=== PATIENT | female | born 1965 | race Caucasian/White ===

== ENCOUNTER 2018-03-14 15:37 | Observation (INO) | payer SELFPAY ==
[~2018-03-14] VITALS: Ht 154.9 cm; Wt 101.1 kg
[~2018-03-14 15:37] MED LIST: CIPR500T4 PO; GUAI100S6 PO
[2018-03-14 15:51] VITALS: BP 195/122; PULSE 94; RESP 18; TEMP 97.5; O2SAT 96
[2018-03-14 16:10] LABS: AUTOMATED NEUTROPHIL # 5.6 TH/MM3 (1.8-7.7); BASOPHIL # 0.1 TH/MM3 (0-0.2); BASOPHIL % 0.8 % (0.0-2.0); EOSINOPHIL # 0.2 TH/MM3 (0-0.4); EOSINOPHIL % 1.6 % (0.0-4.0); HEMOGLOBIN 15.9 GM/DL (11.6-15.3); LYMPH % 34.4 % (9.0-44.0); LYMPHOCYTE # 3.4 TH/MM3 (1.0-4.8); MEAN CELL VOLUME 84.6 FL (80.0-100.0); MEAN CORPUSCULAR HEMOGLOBIN 28.7 PG (27.0-34.0); MEAN CORPUSCULAR HGB CONC 33.9 % (32.0-36.0); MEAN PLATELET VOLUME 9.4 FL (7.0-11.0); MONO % 5.6 % (0.0-8.0); MONOCYTE # 0.6 TH/MM3 (0-0.9); NEUT % 57.6 % (16.0-70.0); PLATELET COUNT 248 TH/MM3 (150-450); RED BLOOD COUNT 5.55 MIL/MM3 (4.00-5.30); RED CELL DISTRIBUTION WIDTH 13.1 % (11.6-17.2); WHITE BLOOD COUNT 9.9 TH/MM3 (4.0-11.0)
[2018-03-14 16:11] VITALS: RESP 18; O2SAT 100
[2018-03-14 16:20] LABS: CHLORIDE 103 MEQ/L (98-107); SODIUM (NA) 136 MEQ/L (136-145)
[2018-03-14 16:22] LABS: CALCIUM 9.2 MG/DL (8.5-10.1)
[2018-03-14 16:23] LABS: BICARBONATE 26.9 MEQ/L (21.0-32.0); BLOOD UREA NITROGEN 11 MG/DL (7-18); GLUCOSE,RANDOM 200 MG/DL (74-106)
[2018-03-14 16:26] LABS: CREATININE 0.75 MG/DL (0.50-1.00); GLOMERULAR FILTRATION RATE 81 ML/MIN (>89); PROTHROMBIN TIME - PATIENT 10.6 SEC (9.8-11.6)
[2018-03-14 16:31] LABS: TROPONIN I LESS THAN 0.02 NG/ML (0.02-0.05)
[2018-03-14 16:47] VITALS: BP 210/112; PULSE 80; RESP 18; O2SAT 94
--- NOTE | 2018-03-14 16:58 | PD ---
HPI Chief Complaint: Chest Pain Time Seen by Provider: 16:16 Travel History International Travel<30 days: No Contact w/Intl Traveler<30days: No Traveled to known affect area: No History of Present Illness HPI 52-year-old female complains of chest pain headache nausea vomiting. Patient states that she started having substernal chest pressure with radiation to left arm since yesterday. Patient states that she has numbness sensation of left anterior chest wall also. Patient denies any palpitation. Patient denies diaphoresis. Patient started having aching headache diffuse over the head this morning. Patient denies any visual change. Patient states that she had intermittent nausea vomiting with a headache. Patient denies any neck pain. Patient denies abdominal pain. Patient denies any fever chills. Patient denies any focal weakness or numbness of the extremity. Patient has history hypertension. Patient was on medication the past. Patient states that she does not have insurance and has not been on medication recently for high blood pressure. Patient denies history of diabetes or hyperlipidemia. Patient is a non-smoker. Patient has family history of heart disease. On a scale of 1-10 the pain is a 5. Patient states that she had chest pain in 2007. Patient was seen in [place] and had chemical stress test done which was negative. PFSH Past Medical History Anemia: Yes Cancer: No Cardiovascular Problems: Yes Diabetes: No ("SOMETIMES" ) Endocrine: Yes Genitourinary: No Hypertension: Yes Musculoskeletal: No Neurologic: No Psychiatric: No Reproductive: No Respiratory: No Influenza Vaccination: No PNEUMOCCOCAL Vaccine (Year): 2 ?: Not Menopausal: No Past Surgical History Surgical History: No Previous Surgery Other Surgery: No Social History Alcohol Use: No Tobacco Use: No Substance Use: No Allergies-Medications (Allergen,Severity, Reaction): Coded Allergies: aspirin (Unverified Allergy, Severe, Swelling, 03/14/18) nitroglycerin (Unverified Allergy, Severe, SWELLING, 03/14/18) shellfish derived (Unverified Allergy, Severe, Swelling, 03/14/18) Reported Meds & Prescriptions Reported Meds & Active Scripts Active No Active Prescriptions or Reported Medications Review of Systems General / Constitutional: No: Fever Eyes: No: Visual changes HENT: Positive: Headaches Cardiovascular: Positive: Chest Pain or Discomfort Respiratory: No: Shortness of Breath Gastrointestinal: Positive: Nausea, Vomiting, No: Abdominal Pain Genitourinary: No: Dysuria Musculoskeletal: No: Pain Skin: No Rash Neurologic: No: Weakness Psychiatric: No: Depression Endocrine: No: Polydipsia Hematologic/Lymphatic: No: Easy Bruising Physical Exam Narrative GENERAL: Well-nourished, well-developed patient. SKIN: Focused skin assessment warm/dry. HEAD: Normocephalic. EYES: No scleral icterus. No injection or drainage. Pupils 2 mm equal reactive. NECK: Supple, trachea midline. No JVD or lymphadenopathy. CARDIOVASCULAR: Regular rate and rhythm without murmurs, gallops, or rubs. RESPIRATORY: Breath sounds equal bilaterally. No accessory muscle use. GASTROINTESTINAL: Abdomen soft, non-tender, nondistended. MUSCULOSKELETAL: No cyanosis, or edema. BACK: Nontender without obvious deformity. No CVA tenderness. Neurologic exam: Normal. Data Data Last Documented VS Vital Signs Date Time Temp Pulse Resp B/P (MAP) Pulse Ox O2 Delivery O2 Flow Rate FiO2 03/14/18 17:14 88 18 195/94 (127) 94 Room Air 03/14/18 15:51 97.5 Orders Orders Electrocardiogram (03/14/18 15:58) Complete Blood Count With Diff (03/14/18 15:58) Basic Metabolic Panel (Bmp) (03/14/18 15:58) Ckmb (Isoenzyme) Profile (03/14/18 15:58) Troponin I (03/14/18 15:58) Chest, Single Ap (03/14/18 15:58) Iv Access Insert/Monitor (03/14/18 15:58) Ecg Monitoring (03/14/18 15:58) Oxygen Administration (03/14/18 15:58) Oximetry (03/14/18 15:58) Act Partial Throm Time (Ptt) (03/14/18 15:58) Prothrombin Time / Inr (Pt) (03/14/18 15:58) Hydralazine Inj (Apresoline Inj) (03/14/18 17:00) Ct Brain W/O Iv Contrast(Rout) (03/14/18 16:49) Ondansetron Inj (Zofran Inj) (03/14/18 17:00) Hydralazine Inj (Apresoline Inj) (03/14/18 17:30) Labs Laboratory Tests Test 03/14/18 16:05 White Blood Count 9.9 TH/MM3 Red Blood Count 5.55 MIL/MM3 Hemoglobin 15.9 GM/DL Hematocrit 47.0 % Mean Corpuscular Volume 84.6 FL Mean Corpuscular Hemoglobin 28.7 PG Mean Corpuscular Hemoglobin Concent 33.9 % Red Cell Distribution Width 13.1 % Platelet Count 248 TH/MM3 Mean Platelet Volume 9.4 FL Neutrophils (%) (Auto) 57.6 % Lymphocytes (%) (Auto) 34.4 % Monocytes (%) (Auto) 5.6 % Eosinophils (%) (Auto) 1.6 % Basophils (%) (Auto) 0.8 % Neutrophils # (Auto) 5.6 TH/MM3 Lymphocytes # (Auto) 3.4 TH/MM3 Monocytes # (Auto) 0.6 TH/MM3 Eosinophils # (Auto) 0.2 TH/MM3 Basophils # (Auto) 0.1 TH/MM3 CBC Comment DIFF FINAL Differential Comment Prothrombin Time 10.6 SEC Prothromb Time International Ratio 1.0 RATIO Activated Partial Thromboplast Time 25.2 SEC Blood Urea Nitrogen 11 MG/DL Creatinine 0.75 MG/DL Random Glucose 200 MG/DL Calcium Level 9.2 MG/DL Sodium Level 136 MEQ/L Potassium Level 3.9 MEQ/L Chloride Level 103 MEQ/L Carbon Dioxide Level 26.9 MEQ/L Anion Gap 6 MEQ/L Estimat Glomerular Filtration Rate 81 ML/MIN Total Creatine Kinase 67 U/L Troponin I LESS THAN 0.02 NG/ML MDM Medical Decision Making Medical Screen Exam Complete: Yes Emergency Medical Condition: Yes Interpretation(s) Last Impressions Chest X-Ray 03/14/18 1558 Signed Impressions: Service Date/Time: March 16:07 - CONCLUSION: 1. Mild basilar atelectasis. Milo Nazario MD 1727 PM. CBC within normal limits. BMP within normal limits. Random glucose 200. Cardiac enzymes are normal. Differential Diagnosis Differential diagnosis including tension headache, cluster headache, migraine headache, uncontrolled hypertension, hypertensive urgency, hypertensive crisis, angina, LA, PE, pneumothorax. Narrative Course 52-year-old female with headache, nausea vomiting, chest discomfort. History of hypertension and not on medication recently. Hydralazine 10 mg IV given. Zofran 4 mg IV given. Diagnosis Primary Impression: Chest pain Qualified Codes: R07.9 - Chest pain, unspecified Additional Impressions: Cephalgia Qualified Codes: R51 - Headache Uncontrolled hypertension Admitting Information Admitting Physician Requests: Observation Scripts No Active Prescriptions or Reported Meds Zak Leonardo MD March 14, 2018 16:58
[2018-03-14] MEDS ORDERED: ONDANSETRON HCL 4 MG/2 ML VIAL IV PUSH ONE (17:00)
[2018-03-14] MEDS ORDERED: hydrALAZINE HCL 20 MG/ML VIAL IV PUSH ONE ×2 (17:00→17:30)
--- NOTE | 2018-03-14 17:08 | RADRPT ---
EXAM DATE/TIME: 03/14/2018 16:07 [facility] COMPARISON: No previous studies available for comparison. INDICATIONS : Chest pain. MEDICAL HISTORY : Hypertension. SURGICAL HISTORY : None. ENCOUNTER: Initial ACUITY: 1 day PAIN SCORE: 7/10 LOCATION: Left chest FINDINGS: Low lung volumes with basilar atelectasis. Mild cardiomegaly. No effusion or pneumothorax. CONCLUSION: 1. Mild basilar atelectasis. Milo Nazario MD on March 14, 2018 at 17:06 Board Certified Radiologist. This report was verified electronically.
[2018-03-14 17:14] VITALS: BP 195/94; PULSE 88; RESP 18; O2SAT 94
[2018-03-14] MEDS ORDERED: ACETAMINOPHEN 500 MG CPLT PO PRN (17:45)
[2018-03-14] MEDS ORDERED: ONDANSETRON HCL 4 MG/2 ML VIAL IV PUSH PRN (17:45)
[2018-03-14] MEDS ORDERED: SODIUM CHLORIDE 0.9% FLUSH 10 ML FLUSH IV FLUSH PRN (17:45)
[2018-03-14 17:51] VITALS: BP 173/85; PULSE 90; RESP 18; O2SAT 95
[2018-03-14] MEDS ORDERED: cloNIDine HCL 0.1 MG TAB PO PRN (18:00)
--- NOTE | 2018-03-14 18:07 | RADRPT ---
EXAM DATE/TIME: 03/14/2018 17:56 [facility] COMPARISON: No previous studies available for comparison. INDICATIONS : Cephalgia. RADIATION DOSE: 57.05 CTDIvol (mGy) MEDICAL HISTORY : Cardiovascular disease. Hypertension. SURGICAL HISTORY : None. ENCOUNTER: Initial ACUITY: 1 day PAIN SCALE: 8/10 LOCATION: cranial TECHNIQUE: Multiple contiguous axial images were obtained of the head. Using automated exposure control and adj ustment of the mA and/or kV according to patient size, radiation dose was kept as low as reasonably a chievable to obtain optimal diagnostic quality images. DICOM format image data is available electro nically for review and comparison. FINDINGS: CEREBRUM: The ventricles are normal for age. No evidence of midline shift, mass lesion, hemorrhage or acute in farction. No extra-axial fluid collections are seen. POSTERIOR FOSSA: The cerebellum and brainstem are intact. The 4th ventricle is midline. The cerebellopontine angle i s unremarkable. EXTRACRANIAL: The visualized portion of the orbits is intact. SKULL: The calvaria is intact. No evidence of skull fracture. CONCLUSION: No acute disease. Daryl Bauer MD on March 14, 2018 at 18:05 Board Certified Radiologist. This report was verified electronically.
[2018-03-14] MEDS: LISINOPRIL 20 MG TAB PO SCH (18:21)
[2018-03-14] MEDS ORDERED: ACETAMINOPHEN 325 MG TAB PO ONE (18:30)
[2018-03-14 19:25] LABS: TROPONIN I LESS THAN 0.02 NG/ML (0.02-0.05)
[2018-03-14] MEDS: SODIUM CHLORIDE 0.9% FLUSH 10 ML FLUSH IV FLUSH SCH (19:41)
[2018-03-14 20:00] VITALS: BP 175/88; PULSE 102; RESP 22; TEMP 96.9; O2SAT 94
[2018-03-14] MEDS: INSULIN ASPART SUPPLEMENTAL SCALE SQ SCH ×2 (21:00→21:22)
[2018-03-14] MEDS ORDERED: PROMETHAZINE INJ 25 MG/ML VIAL IM ONE (22:30)
[2018-03-14 22:53] LABS: TROPONIN I LESS THAN 0.02 NG/ML (0.02-0.05)
[2018-03-15] VITALS (11 sets, daily range): BP systolic 128–149; BP diastolic 81–95; PULSE 18–105; RESP 18–22; TEMP 97–98.6; O2SAT 92–96
[2018-03-15] MEDS ORDERED: ALUMINUM/MAGNESIUM/SIMETH 30 ML CUP PO ONE (02:30)
[2018-03-15] MEDS: INSULIN ASPART SUPPLEMENTAL SCALE SQ SCH ×4 (08:00→21:00)
[2018-03-15] MEDS: LISINOPRIL 20 MG TAB PO SCH (08:11)
[2018-03-15] MEDS: SODIUM CHLORIDE 0.9% FLUSH 10 ML FLUSH IV FLUSH SCH ×2 (08:11→21:22)
--- NOTE | 2018-03-15 13:24 | HHI.HP ---
[facility]ician No Primary Care Physician Admission Diagnosis Chest pain. Uncontrolled hypertension. Diagnoses: (1) Chest pain Diagnosis: Principal (2) Uncontrolled hypertension Diagnosis: Principal (3) Hyperglycemia Diagnosis: Principal (4) Shortness of breath Diagnosis: Principal (5) Dyspnea on exertion Diagnosis: Principal Chief Complaint: Chest pain, dyspnea on exertion Travel History International Travel<30 Days: No Contact w/Intl Traveler <30 Da: No Traveled to Known Affected Are: No History of Present Illness 52-year-old female with no diagnosed chronic medical illnesses who presented the hospital because of chest pain, dyspnea on exertion, orthopnea. Patient states that her symptoms started 2 nights ago when she started developing a mid chest pain which she describes as a 6/10 on a pain scale that radiated into her back and had left arm numbness. She had associated nausea but no vomiting, shortness of breath, dyspnea on exertion, orthopnea, lightheadedness, dizziness. She denied any diaphoresis. She indicates that whenever she got up to move she would experience the shortness of breath and chest discomfort. She states that whenever she lays down and does not move than she does not have any discomfort. Patient denies any previous cardiac workup. Patient came to emergency department and was found to have hypertensive emergency with blood pressure 210/112 with associated shortness breath, dyspnea on exertion, headache , chest pain. Patient was given Apresoline 2 and a dose of oral lisinopril with improvement of her blood pressure. However patient states that her chest pain has remained stable with worsening when she tries to move. Patient also had hypoglycemia, she denies any history of diabetes. Family indicates that she has been drinking a lot of lemon juice and honey recently. Because of the above reasons is recommended by the ER physician the patient be during the hospital for further recommendations management. Review of Systems Respiratory: COMPLAINS OF: Shortness of breath Cardiovascular: COMPLAINS OF: Chest pain, Dyspnea on Exertion, Orthopnea Except as stated in HPI: all other systems reviewed are Neg Past Family Social History Past Medical History Patient denies any chronic medical illnesses Past Surgical History Patient denies any previous surgeries Reported Medications Reported Meds & Active Scripts Active No Active Prescriptions or Reported Medications Allergies: Coded Allergies: aspirin (Unverified Allergy, Severe, Swelling, 03/14/18) nitroglycerin (Unverified Allergy, Severe, SWELLING, 03/14/18) shellfish derived (Unverified Allergy, Severe, Swelling, 03/14/18) Family History Family history is reviewed and she indicates her father had heart disease, 2 aunts with heart disease Social History Patient denies any tobacco, alcohol or illicit drugs Physical Exam Vital Signs Vital Signs Date Time Temp Pulse Resp B/P (MAP) Pulse Ox O2 Delivery O2 Flow Rate FiO2 03/15/18 12:00 97.7 89 19 142/81 (101) 95 03/15/18 10:47 96 21 03/15/18 10:44 94 21 03/15/18 10:06 67 03/15/18 09:29 85 03/15/18 08:00 98.6 97 20 128/83 (98) 95 03/15/18 04:00 97.0 105 22 142/87 (105) 93 03/15/18 00:00 97.2 105 22 145/95 (112) 92 03/14/18 20:00 96.9 102 22 175/88 (117) 94 03/14/18 20:00 94 21 03/14/18 17:51 90 18 173/85 (114) 95 Room Air 03/14/18 17:14 88 18 195/94 (127) 94 Room Air 03/14/18 16:47 80 18 210/112 (144) 94 Room Air 03/14/18 16:11 100 Room Air 03/14/18 16:11 18 100 Room Air 03/14/18 16:06 Room Air 03/14/18 15:51 97.5 94 18 195/122 (146) 96 Physical Exam GENERAL: Well-developed, well-nourished, in no acute distress. alert and orientated HEENT: Head is normocephalic without any lesions or masses noted. Facial features are symmetric. Eyes: Pupils equal round reactive to light. Extraocular muscles are intact. Conjunctivae were clear. Oropharyngeal: Pharynx without any erythema edema. Tongue is midline without deviation. Buccal mucosa is moist without any masses or lesions NECK: Supple without any masses. Trachea midline no deviation. No JVD, no bruits are appreciated CARDIAC: Regular rhythm, regular rate. S1/S2 are heard. No murmurs gallops or rubs. LUNGS: Clear to auscultation bilaterally. No wheeze, rhonchi or rales. No use of accessory muscles on inspiration or expiration. ABDOMEN: Soft, nontender. Nondistended. Bowel sounds heard in all 4 quadrants. No organomegaly or masses. Negative rebound, negative guarding EXTREMITIES: No edema, pulses are equal bilaterally. No cyanosis or clubbing NEUROLOGY: Mood and affect appear appropriate. Cranial nerves II through XII grossly intact. Muscle strength 5/5 in upper and lower extremities bilaterally. Deep tendon reflexes are 2+ in upper and lower extremities bilaterally. Laboratory Laboratory Tests Test 03/14/18 16:05 03/14/18 19:00 03/14/18 22:25 White Blood Count 9.9 Red Blood Count 5.55 Hemoglobin 15.9 Hematocrit 47.0 Mean Corpuscular Volume 84.6 Mean Corpuscular Hemoglobin 28.7 Mean Corpuscular Hemoglobin Concent 33.9 Red Cell Distribution Width 13.1 Platelet Count 248 Mean Platelet Volume 9.4 Neutrophils (%) (Auto) 57.6 Lymphocytes (%) (Auto) 34.4 Monocytes (%) (Auto) 5.6 Eosinophils (%) (Auto) 1.6 Basophils (%) (Auto) 0.8 Neutrophils # (Auto) 5.6 Lymphocytes # (Auto) 3.4 Monocytes # (Auto) 0.6 Eosinophils # (Auto) 0.2 Basophils # (Auto) 0.1 CBC Comment DIFF FINAL Differential Comment Prothrombin Time 10.6 Prothromb Time International Ratio 1.0 Activated Partial Thromboplast Time 25.2 Blood Urea Nitrogen 11 Creatinine 0.75 Random Glucose 200 Calcium Level 9.2 Sodium Level 136 Potassium Level 3.9 Chloride Level 103 Carbon Dioxide Level 26.9 Anion Gap 6 Estimat Glomerular Filtration Rate 81 Total Creatine Kinase 67 60 63 Troponin I LESS THAN 0.02 LESS THAN 0.02 LESS THAN 0.02 Result Diagram: 03/14/18 1605 03/14/18 1605 Imaging Last Impressions Head CT 03/14/18 1649 Signed Impressions: Service Date/Time: March 17:56 - CONCLUSION: No acute disease. Daryl Bauer MD Chest X-Ray 03/14/18 4701 Signed Impressions: Service Date/Time: March 16:07 - CONCLUSION: 1. Mild basilar atelectasis. MD Chelsea Martin VTE Risk Assessment Caprini VTE Risk Assessment: Mod/High Risk (score >= 2) Caprini Risk Assessment Model Point Value = 1 Point Value = 2 Point Value = 3 Point Value = 5 Age 41-60 Minor surgery BMI > 25 kg/m2 Swollen legs Varicose veins or History of unexplained or recurrent spontaneous Oral contraceptives or hormone replacement Sepsis (< 1 month) Serious lung disease, including pneumonia (< 1 month) Abnormal pulmonary function Acute myocardial infarction Congestive heart failure (< 1 month) History of inflammatory bowel disease Medical patient at bed rest Age 61-74 Arthroscopic surgery Major open surgery (> 45 min) Laparoscopic surgery (> 45 min) Malignancy Confined to bed (> 72 hours) Immobilizing plaster cast Central venous access Age >= 75 History of VTE Family history of VTE Factor V Leiden Prothrombin [id number] Lupus anticoagulant Anticardiolipin antibodies Elevated serum homocysteine Heparin-induced thrombocytopenia Other congenital or acquired thrombophilia Stroke (< 1 month) Elective arthroplasty Hip, pelvis, or leg fracture Acute spinal cord injury (< 1 month) Prophylaxis Regimen Total Risk Factor Score Risk Level Prophylaxis Regimen 0-1 Low Early ambulation 2 Moderate Order ONE of the following: *Sequential Compression Device (SCD) *Heparin 5000 units SQ BID 3-4 Higher Order ONE of the following medications: *Heparin 5000 units SQ TID *Enoxaparin/Lovenox 40 mg SQ daily (WT < 150 kg, CrCl > 30 mL/min) *Enoxaparin/Lovenox 30 mg SQ daily (WT < 150 kg, CrCl > 10-29 mL/min) *Enoxaparin/Lovenox 30 mg SQ BID (WT < 150 kg, CrCl > 30 mL/min) AND/OR *Sequential Compression Device (SCD) 5 or more Highest Order ONE of the following medications: *Heparin 5000 units SQ TID (Preferred with Epidurals) *Enoxaparin/Lovenox 40 mg SQ daily (WT < 150 kg, CrCl > 30 mL/min) *Enoxaparin/Lovenox 30 mg SQ daily (WT < 150 kg, CrCl > 10-29 mL/min) *Enoxaparin/Lovenox 30 mg SQ BID (WT < 150 kg, CrCl > 30 mL/min) AND *Sequential Compression Device (SCD) Assessment and Plan Assessment and Plan Hypertensive urgency -Patient presented with headache, dyspnea on exertion, shortness of breath, chest pain which improved with blood pressure control -Status post Apresoline IV 2 -Continued on lisinopril 20 mg daily Chest pain, -Patient with increased risk factors include age, body habitus, hypertension, diabetes, family history of heart disease -Patient has been ruled out for acute coronary event with serial cardiac enzymes are negative -Serial EKGs show sinus rhythm with nonspecific T-wave changes -Myocardial perfusion study was performed and indicated no signs of ischemia low risk -Continue aspirin, nitroglycerin as needed -Continue monitor telemetry Hyperglycemia, likely diabetes -Awaiting hemoglobin A1c -Accu-Cheks with sliding scale insulin -Diabetic diet -Consult casting wheel operator helper, dietitian DVT prevention -Sequential compression devices Problem Qualifiers (1) Chest pain: Qualified Codes: R07.9 - Chest pain, unspecified Gregor Tello March 15, 2018 13:24
[2018-03-15] MEDS ORDERED: REGADENOSON INJ 0.4 MG/5 ML SYR IV ONE (14:48)
[2018-03-15 14:56] LABS: CHOLESTEROL/ HDL RATIO 9.56 RATIO; HDL CHOLESTEROL 36.8 MG/DL (40.0-60.0)
[2018-03-15 16:10] LABS: HEMOGLOBIN A1C 8.3 % (4.3-6.0)
--- NOTE | 2018-03-15 16:14 | RADRPT ---
EXAM DATE/TIME: 03/15/2018 14:35 [facility] COMPARISON: No previous studies available for comparison. INDICATIONS : Left sided chest pain for one day. Angina. DOSE: 30.0 mCi Tc99m Myoview at stress. 10.0 mCi Tc99m Myoview at rest. 0.4 mg Lexiscan STRESS SYMPTOMS: Chest pressure with nausea. EJECTION FRACTION: 68% MEDICAL HISTORY : Hypertension. SURGICAL HISTORY : None. ENCOUNTER: Initial ACUITY: 1 day PAIN SCALE: 5/10 LOCATION: Midsternal chest TECHNIQUE: The patient underwent pharmacologic stress with infusion of prescribed dose. Continuous ECG tracing was monitored during stress. Gated SPECT imaging was performed after stress and conventional SPECT i maging was performed at rest. The examination was performed on a SPECT/CT scanner, both attenuation and non-corrected datasets were reviewed. FINDINGS: DISTRIBUTION: The maximum perfused segment at stress is in the inferior wall. PERFUSION STUDY: The pattern of perfusion at stress is within normal limits. GATED STUDY: There is intact wall motion and thickening without hypokinetic or dyskinetic segments. CONCLUSION: 1. No significant reversibility to suggest ischemia. 2. Normal wall motion with ejection fraction 68% RISK CATEGORY: Low (<1% Annual Mortality Rate) Milo Nazario MD on March 15, 2018 at 15:54 Board Certified Radiologist. This report was verified electronically.
[2018-03-15] MEDS ORDERED: ATORVASTATIN 40 MG TAB PO SCH (21:00)
[2018-03-16 01:27] VITALS: BP 130/87; PULSE 90; RESP 20; TEMP 96.5; O2SAT 92
[2018-03-16] MEDS: INSULIN ASPART SUPPLEMENTAL SCALE SQ SCH ×3 (07:47→12:52)
[2018-03-16] MEDS: LISINOPRIL 20 MG TAB PO SCH (07:47)
[2018-03-16] MEDS: SODIUM CHLORIDE 0.9% FLUSH 10 ML FLUSH IV FLUSH SCH (07:47)
[2018-03-16 08:00] VITALS: BP 139/80; PULSE 106; RESP 20; TEMP 98.3; O2SAT 95; O2SAT 96
--- NOTE | 2018-03-16 08:32 | EKG ---
Date Performed: 03/14/2018 Time Performed: 22:10:32 PTAGE: 52 years EKG: SINUS TACHYCARDIA BORDERLINE LEFT AXIS DEVIATION NONSPECIFIC T-WAVE ABNORMALITY ABNORMAL [facility] ECG PREVIOUS TRACING : 03/14/2018 19.21 DOCTOR: Anni Chappell Interpretating Date/Time 03/16/2018 08:29:41
--- NOTE | 2018-03-16 08:37 | EKG ---
Date Performed: 03/14/2018 Time Performed: 19:21:03 PTAGE: 52 years EKG: Sinus rhythm MARKED LEFT AXIS DEVIATION POSSIBLE ANTERIOR MYOCARDIAL INFARCTION ABNORMAL ECG PREVIOUS TRACING : 02/15/2015 15.20 DOCTOR: Anni Chappell Interpretating Date/Time 03/16/2018 08:34:41
--- NOTE | 2018-03-16 08:42 | EKG ---
Date Performed: 03/14/2018 Time Performed: 15:49:13 PTAGE: 52 years EKG: Sinus rhythm LEFT ANTERIOR FASCICULAR BLOCK POSSIBLE ANTERIOR MYOCARDIAL INFARCTION ABNORMAL ECG INTERPRETATION B ASED ON A DEFAULT AGE OF 39 YEARS NO PREVIOUS TRACING DOCTOR: Anni Chappell Interpretating Date/Time 03/16/2018 08:39:34
[2018-03-16] MEDS ORDERED: GLUCKIT15 (10:38)
[2018-03-16] MEDS ORDERED: METF500T PO (10:38)
[2018-03-16] MEDS ORDERED: GLUCTES12 (10:38)
[2018-03-16] MEDS ORDERED: LANCETS1 MI1 (10:38)
[2018-03-16] MEDS ORDERED: ATOR40TA16 PO (10:38)
[2018-03-16] MEDS ORDERED: LISI-515 PO (10:38)
--- NOTE | 2018-03-16 10:38 | HHI.DCPOC ---
Discharge Care Plan Diagnosis: (1) DM2 (diabetes mellitus, type 2) (2) Chest pain (3) Uncontrolled hypertension Goals to Promote Your Health * To prevent worsening of your condition and complications * To maintain your health at the optimal level Directions to Meet Your Goals Take your medications as prescribed Follow your dietary instruction Follow activity as directed Keep your appointments as scheduled Take your immunizations and boosters as scheduled If your symptoms worsen call your PCP, if no PCP go to Urgent Care Center or Emergency Room Smoking is Dangerous to Your Health. Avoid second hand smoke Call the 24-hour hour crisis hotline for domestic abuse at Maria Teresa Nolasco MD March 16, 2018 10:38
--- NOTE | 2018-03-16 10:41 | HHI.DS ---
Discharge Summary Admission Date March 14, 2018 at 17:43 Discharge Date: March 16, 2018 Admitting Diagnosis Chest pain. Uncontrolled hypertension. (1) Chest pain ICD Code: R07.9 - Chest pain, unspecified Diagnosis: Principal Status: Acute (2) Uncontrolled hypertension ICD Code: I10 - Essential (primary) hypertension Diagnosis: Principal Status: Acute (3) Hyperglycemia ICD Code: R73.9 - Hyperglycemia, unspecified Diagnosis: Principal (4) Shortness of breath ICD Code: R06.02 - Shortness of breath Diagnosis: Principal (5) Dyspnea on exertion ICD Code: R06.09 - Other forms of dyspnea Diagnosis: Principal Procedures None Brief History - From Admission 52-year-old female with no diagnosed chronic medical illnesses who presented the hospital because of chest pain, dyspnea on exertion, orthopnea. Patient states that her symptoms started 2 nights ago when she started developing a mid chest pain which she describes as a 6/10 on a pain scale that radiated into her back and had left arm numbness. She had associated nausea but no vomiting, shortness of breath, dyspnea on exertion, orthopnea, lightheadedness, dizziness. She denied any diaphoresis. She indicates that whenever she got up to move she would experience the shortness of breath and chest discomfort. She states that whenever she lays down and does not move than she does not have any discomfort. Patient denies any previous cardiac workup. Patient came to emergency department and was found to have hypertensive emergency with blood pressure 210/112 with associated shortness breath, dyspnea on exertion, headache , chest pain. Patient was given Apresoline 2 and a dose of oral lisinopril with improvement of her blood pressure. However patient states that her chest pain has remained stable with worsening when she tries to move. Patient also had hypoglycemia, she denies any history of diabetes. Family indicates that she has been drinking a lot of lemon juice and honey recently. Because of the above reasons is recommended by the ER physician the patient be during the hospital for further recommendations management. CBC/BMP: 03/14/18 1605 03/14/18 1605 Significant Findings Laboratory Tests Test 03/14/18 16:05 03/14/18 19:00 03/14/18 22:25 03/15/18 17:15 Red Blood Count 5.55 MIL/MM3 (4.00-5.30) Hemoglobin 15.9 GM/DL (11.6-15.3) Hematocrit 47.0 % (35.0-46.0) Random Glucose 200 MG/DL (74-106) Estimat Glomerular Filtration Rate 81 ML/MIN (>89) Troponin I LESS THAN 0.02 NG/ML LESS THAN 0.02 NG/ML LESS THAN 0.02 NG/ML Hemoglobin A1c 8.3 % (4.3-6.0) Triglycerides Level 443 MG/DL (42-150) Cholesterol Level 352 MG/DL (120-200) HDL Cholesterol 36.8 MG/DL (40.0-60.0) Alanine Aminotransferase (ALT/SGPT) 55 U/L (10-53) Imaging Last Impressions Myocardial Perfusion Scan Nuc Med 03/15/18 0000 Signed Impressions: Service Date/Time: Thursday, March 15, 2018 14:35 - CONCLUSION: 1. No significant reversibility to suggest ischemia. 2. Normal wall motion with ejection fraction 68%% RISK CATEGORY: Low (<1%% Annual Mortality Rate) iMlo Nazario MD Head CT 03/14/18 1649 Signed Impressions: Service Date/Time: March 17:56 - CONCLUSION: No acute disease. Daryl Bauer MD Chest X-Ray 03/14/18 1558 Signed Impressions: Service Date/Time: March 16:07 - CONCLUSION: 1. Mild basilar atelectasis. Milo Nazario MD PE at Discharge GENERAL: This is a well-nourished, well-developed patient, in no apparent distress. CARDIOVASCULAR: Regular rate and rhythm without murmurs, gallops, or rubs. RESPIRATORY: Clear to auscultation. Breath sounds equal bilaterally. No wheezes , rales, or rhonchi. GASTROINTESTINAL: Abdomen soft, non-tender, nondistended. Normal active bowel sounds MUSCULOSKELETAL: Extremities without clubbing, cyanosis, or edema. NEURO: Alert & Oriented x4 to person, place, time, situation. Moves all ext x4 Pt update on day of discharge Patient doing better. Discharge plans discussed with patient and family at bedside. Blood pressure improved and blood sugar managed well Hospital Course Patient seen and evaluated today in follow-up for acute and accelerated hypertension as a new diagnosis as well as with diabetes mellitus type 2 no diagnosis. Hemoglobin was 8.3. Blood pressure was 210/112. Blood pressure and blood sugar were controlled. Patient education was provided. Patient continued to improve. And was discharged home Pt Condition on Discharge: Good Discharge Disposition: Discharge Home Discharge Time: <= 30 minutes Discharge Instructions DIET: Follow Instructions for: Heart Healthy Diet, Diabetic Diet Activities you can perform: Regular-No Restrictions Follow up Referrals: PCP Follow-up - 1 Week New Medications: Blood Glucose Monitoring W/Device (Glucocom Blood Glucose Mo W/Device) 1 Kit Kit KIT .XX DIRECTED for Blood Sugar Management, #1 Glucocom Test Strips (Glucocom Test Strips) 1 Nu Nu EA .XX DIRECTED for Blood Sugar Management, #1 Lancets (Lancets) 1 Mis Mis EA .XX DIRECTED for Blood Sugar Management, #1 0 Refills Metformin (Metformin) 500 Mg Tab 500 MG PO BIDPC for Blood Sugar Management, #60 TAB 0 Refills Atorvastatin (Atorvastatin) 40 Mg Tab 40 MG PO HS for Cholesterol Management, #31 TAB Lisinopril (Lisinopril) 20 Mg Tab 20 MG PO DAILY for Blood Pressure Management, #31 TAB Maria Teresa Nolasco MD March 16, 2018 10:41
[2018-03-16 10:59] VITALS: PULSE 16
[2018-03-16 12:00] VITALS: BP 125/74; PULSE 103; RESP 20; TEMP 97.4; O2SAT 95
== END 2018-03-16 14:15 | disposition home or self-care (01) ==
LOC: PHED 15:37 → PHEDA 17:43 → PH3B 19:06
PROVIDERS: ADMIT Hospitalist; ATTEND Hospitalist
DX: R07.9 Chest pain, unspecified (principal); R06.02 Shortness of breath; I16.1 Hypertensive emergency; I10 Essential (primary) hypertension; R94.31 Abnormal electrocardiogram [ECG] [EKG]; E11.65 Type 2 diabetes mellitus with hyperglycemia; Z79.84 Long term (current) use of oral hypoglycemic drugs; Z82.49 Family history of ischemic heart disease and other diseases of the circulatory system; Z79.899 Other long term (current) drug therapy
CPT/HCPCS: 70450; 71045; 78452; 80048; 80061; 82550; 82948; 83036; 84460; 84484; 85025; 85610; 85730; 93005; 93017; 96372; 96374; 96375; 96376; 99285; A9502; G0378; J0360; J1815; J2405; J2550; J2785